=== PATIENT | female | born 1995 | race Two or more races ===

== ENCOUNTER 2021-08-03 13:26 | Emergency (ER) | payer OTHER ==
[~2021-08-03] VITALS: Ht 162.6 cm; Wt 59.0 kg
[2021-08-03 14:22] LABS: Urine Bacteria FEW /hpf (None Seen); Urine Blood 3+ /uL (Negative); Urine Specific Gravity 1.021 (1.001-1.035); Urine WBC 45 /hpf (0 - 5)
[2021-08-03 15:21] LABS: Basophils # (auto) 0.1 10 ^3/uL (0-0.2); Basophils % (auto) 0.6 % (0.0-2.0); Eosinophils # (auto) 0 10 ^3/uL (0-0.8); Eosinophils % (auto) 0.2 % (0.0-7.0); Lymphocytes # (auto) 1.6 10 ^3/uL (0.4-5.4); Lymphocytes % (auto) 17.7 % (10.0-50.0); Mean Corpuscular Hemoglobin 31.5 pg (28.0-32.0); Mean Corpuscular Hgb Conc. 34.1 g/dL (32.0-36.0); Mean Corpuscular Volume 92.5 fL (80.0-100.0); Monocytes # (auto) 0.5 10 ^3/uL (0-1.3); Monocytes % (auto) 5.3 % (0.0-12.0); Neutrophils # (auto) 6.7 10 ^3/uL (1.6-8.6); Neutrophils % (auto) 76.2 % (37.0-80.0); Nucleated Red Blood Cells % 0.1 %; Red Blood Cells 4.11 10^6/uL (4.0-5.20); Red Cell Distribution Width 12.8 % (11.8-14.3); White Blood Cell 8.8 10^3/uL (4.4-10.8)
[2021-08-03 15:42] LABS: Albumin 3.8 g/dL (3.4-5.0); BUN/Creatinine Ratio 19.6; Calcium 8.7 mg/dL (8.5-10.1)
[2021-08-03 15:45] LABS: Bilirubin, Total 0.5 mg/dL (0.2-1.0); Total Protein 7.3 g/dL (6.4-8.2)
[2021-08-03 15:53] LABS: INR 1.04 (0.9-1.15); Partial Thromboplastin Time 25.2 sec (23.6-33.0)
[2021-08-03] MEDS ORDERED: CEFP200T15 PO (18:16)
[2021-08-03 18:45] VITALS: BP 124/77
== END 2021-08-03 18:50 | disposition home or self-care (01) ==
LOC: ER 13:26
DX: O20.0 Threatened abortion (principal); O23.41 Unspecified infection of urinary tract in pregnancy, first trimester; Z3A.10 10 weeks gestation of pregnancy; O99.321 Drug use complicating pregnancy, first trimester; F12.10 Cannabis abuse, uncomplicated
CPT/HCPCS: 36415; 76801; 80053; 81001; 81025; 84702; 85025; 85610; 85730; 86850; 86900; 86901

== ENCOUNTER 2021-08-04 15:46 | Emergency (ER) | payer OTHER, BC ==
[~2021-08-04] VITALS: Ht 162.6 cm; Wt 59.0 kg
[~2021-08-04 15:46] MED LIST: CEFP200T15 PO
[2021-08-04 20:37] VITALS: BP 129/83
== END 2021-08-04 22:28 | disposition home or self-care (01) ==
LOC: ER 15:46
DX: O20.0 Threatened abortion (principal); O99.511 Diseases of the respiratory system complicating pregnancy, first trimester; J45.909 Unspecified asthma, uncomplicated; Z79.899 Other long term (current) drug therapy; Z88.8 Allergy status to other drugs, medicaments and biological substances; Z3A.10 10 weeks gestation of pregnancy
CPT/HCPCS: 36415; 84702

== ENCOUNTER 2021-08-25 16:21 | Emergency (ER) | payer BC, OTHER ==
[~2021-08-25] VITALS: Ht 162.6 cm; Wt 59.0 kg
[2021-08-25 16:57] LABS: Urine Bacteria MOD /hpf (None Seen); Urine Blood 3+ /uL (Negative); Urine Specific Gravity 1.006 (1.001-1.035); Urine WBC 49 /hpf (0 - 5)
[2021-08-25 17:26] VITALS: BP 102/65
[2021-08-25] MEDS ORDERED: NITR-87 PO (17:40)
== END 2021-08-25 17:47 | disposition home or self-care (01) ==
LOC: ER 16:21
DX: O36.4XX0 Maternal care for intrauterine death, not applicable or unspecified (principal); O46.91 Antepartum hemorrhage, unspecified, first trimester; O99.321 Drug use complicating pregnancy, first trimester; F12.90 Cannabis use, unspecified, uncomplicated; Z88.6 Allergy status to analgesic agent; Z3A.14 14 weeks gestation of pregnancy
CPT/HCPCS: 76805; 81001